=== PATIENT | male | born 1990 | race Caucasian/White ===

== ENCOUNTER → 2023-02-13 23:33 | Outpatient (CLI) | payer SELFPAY ==
[2023-02-13 18:24] LABS: Adenovirus,PCR Not Detected (NotDetected); Bordetella Pertussis Not Detected (NotDetected); Chlamydophila Pneumoniae, PCR Not Detected (NotDetected); Coronavirus 19, PCR Not Detected (NotDetected); Coronavirus 229E Not Detected (NotDetected); Coronavirus NL63 Not Detected (NotDetected); Coronavirus OC43 Not Detected (NotDetected); Coronovirus HKU1,PCR Not Detected (NotDetected); Human Metapneumovirus Not Detected (NotDetected); Influenza A, PCR Not Detected (NotDetected); Influenza AH1, 2009 Not Detected (NotDetected); Influenza AH1, PCR Not Detected (NotDetected); Influenza AH3,PCR Not Detected (NotDetected); Influenza B, PCR Not Detected (NotDetected); Mycoplasma Pneumoniae, PCR Not Detected (NotDetected); Parainfluenza 1, PCR Not Detected (NotDetected); Parainfluenza 2, PCR Not Detected (NotDetected); Parainfluenza 3, PCR Not Detected (NotDetected); Parainfluenza 4, PCR Not Detected (NotDetected); Respiratory Syncytial Virus Not Detected (NotDetected); Rhinovirus/Enterovirus Not Detected (NotDetected)
[2023-02-13 19:08] LABS: Basophils # 0.1 K/mm3 (0-0.2); Basophils % 0.9 % (0.1-2.0); Eosinophils # 0.2 K/mm3 (0.0-0.4); Eosinophils % 1.4 % (0.1-12.0); Hematocrit 49.8 % (42.0-52.0); Hemoglobin 16.4 g/dL (14.1-18.0); Lymphocytes # 3.1 K/mm3 (0.7-4.5); Lymphocytes % 22.5 % (10-50); Mean Corpuscular HGB Conc 32.9 g/dL (31.8-35.4); Mean Corpuscular Hemoglobin 27.6 pg (27.0-31.2); Mean Corpuscular Volume 83.9 fl (80-94); Monocytes # 0.6 K/mm3 (0.1-1.0); Neutrophils # 9.7 K/mm3 (1.8-7.8); Neutrophils % 71.1 % (37.0-80.0); Platelet Count 358 K/mm3 (142-424); Red Blood Count 5.94 M/mm3 (4.60-6.20); Red Cell Distribution Width 13.6 % (11.5-17.5); White Blood Count 13.6 K/mm3 (4.8-10.8)
== END ==
LOC: LAB.DROPOF 23:34
PROVIDERS: PCP Nurse Practitioner; Visit Provider Nurse Practitioner
DX: J06.9 Acute upper respiratory infection, unspecified (principal); R11.2 Nausea with vomiting, unspecified
CPT/HCPCS: 85025; 87581; 87632; 87798; C9803; U0003; U0005

== ENCOUNTER 2023-07-10 07:52 | Emergency (ER) | payer OTHER, SELFPAY ==
[2023-07-10 07:53] VITALS: BP 166/98; PULSE 84; RESP 18; TEMP 36.7; O2SAT 97; BMI 41.7
--- NOTE | 2023-07-10 07:58 | PC.NURSE ---
DR BONE AT BEDSIDE
[2023-07-10 08:01] VITALS: BP 164/83; PULSE 87; O2SAT 98
--- NOTE | 2023-07-10 08:02 | XR_ITS ---
FINAL REPORT CLINICAL HISTORY: fall, left ankle injury COMPARISON: none FINDINGS: LEFT ANKLE: Three views of the left ankle were obtained. There is no acute fracture or dislocation. The joint spaces and mortise are intact. Calcaneal spurs are noted. There is no soft tissue abnormality. IMPRESSION: No acute bony abnormality. Reviewed, Interpreted and Dictated by Frederic Lugo III, MD Transcribed by Cira Love Authenticated and [facility]
--- NOTE | 2023-07-10 08:02 | XR_ITS ---
FINAL REPORT CLINICAL HISTORY: fall, left foot COMPARISON: none FINDINGS: LEFT FOOT: Three views of the left foot were obtained. There is no acute fracture or dislocation. Mild degenerative change, worst at the first MTP. Calcaneal spurs are noted. There is no soft tissue abnormality. IMPRESSION: No acute bony abnormality. Reviewed, Interpreted and Dictated by Frederic Lugo III, MD Transcribed by Cira Love Authenticated and [facility]
--- NOTE | 2023-07-10 08:02 | XR_ITS ---
FINAL REPORT CLINICAL HISTORY: fall, left lower leg pain COMPARISON: None FINDINGS: 2 views of the left tibia/fibula were obtained. There is no acute fracture or dislocation. Mild degenerative change of the knee. There is no soft tissue abnormality. IMPRESSION: No acute fracture Reviewed, Interpreted and Dictated by Frederic Lugo III, MD Transcribed by Cira Love Authenticated and [facility]
--- NOTE | 2023-07-10 08:11 | HMH.EDGENADL ---
Discharge Plan Disposition Patient Disposition: Home, Self-Care Prescriptions Prescriptions: No Action lisinopril 40 mg tablet 40 mg PO DAILY Qty: 90 3RF celecoxib 200 mg capsule 200 mg PO DAILY Qty: 30 2RF cyclobenzaprine 10 mg tablet 10 mg PO TID PRN (Reason: sciatica) Qty: 30 0RF methylprednisolone [Medrol (Wilber)] 4 mg tablets,dose pack See Rx Instructions PO PER PKG DIR Qty: 21 0RF Rx Instructions: PO PER PKG DIR hydrochlorothiazide 12.5 mg tablet 12.5 mg PO DAILY Qty: 90 1RF Referrals Follow up/Referrals: Jai Umana DO [Staff Physician] - See instructions (1-2 weeks if you are not improving ) Provider,Referral, [Primary Care Provider] - See instructions Activity Restrictions/Add. Instructions Additional Instructions/Restrictions: You may take Tylenol or ibuprofen as needed for your symptoms. You may bear weight as tolerated. You may follow-up with orthopedic surgery in 1 to 2 weeks if you do not have a trajectory of improvement. Clinical Impressions Clinical Impression: Muscle strain of left lower leg, Left ankle sprain, Sprain of foot, left Discharge ED Provider: Mitul Hooks General Adult HPI General Chief complaint: Extremity Injury, Lower Stated complaint: WC 07/10, left ankle pain Time Seen by Provider: 07/10/23 07:57 Mode of Arrival: Wheelchair Source of Information: Patient Limitations: No Limitations Description of Symptoms (Recalled from ER Triage Doc. by RN): PT AT WORK, STEPPED OFF THE BACK OF [employer] TRUCK AND TWISTED LEFT ANKLE, FELT A POP ABOUT 0530. History of Present Illness HPI narrative: Patient is a 32-year-old male who works for [employer] was on the back of a truck today and stepped down several feet onto the side of a concrete block twisting his foot sustaining an injury to his left lower extremity at the distal tib-fib ankle and foot region. He had difficulty walking since that time this happened around 530 this morning he took Tylenol and ibuprofen and came here because the pain is not getting better. Denies injuries elsewhere. No other medical problems. Related Data Previous Rx's Medication Instructions Recorded lisinopril 40 mg tablet 40 mg PO DAILY #90 tabs 01/09/23 celecoxib 200 mg capsule 200 mg PO DAILY #30 caps 05/07/23 cyclobenzaprine 10 mg tablet 10 mg PO TID PRN sciatica #30 tabs 05/07/23 hydrochlorothiazide 12.5 mg tablet 12.5 mg PO DAILY #90 tabs 05/07/23 methylprednisolone 4 mg tablets in See Rx Instructions PO PER PKG DIR 05/07/23 a dose pack (Medrol (Wilber)) #21 tabs Allergies Allergy/AdvReac Type Severity Reaction Status Date / Time No Known Allergies Allergy Verified 05/10/23 14:49 [facility] Disclaimer: The information contained in this section may have been updated after the patient was seen, as this information can be updated by other users. Medical History Sciatica of left side Tonsillectomy planned Family History Father Coronary artery disease Hypertension Social History Smoking Status: Former smoker alcohol intake: never substance use type: denies use current occupational status: employed Travel in the last 8 weeks: None household members: spouse housing: house lives independently: Yes marital status: single ROS Obtained: Yes All systems reviewed & no additional complaints except as documented Physical Exam General General appearance: alert Respiratory Respiratory exam: Present normal lung sounds bilaterally Cardiovascular Cardiovascular exam: Present regular rate; Absent tachycardia Extremities Exam Extremities exam: Present other (Tenderness to palpation distal tib-fib compression dorsal aspect of the ankle and midfoot no significant soft tissue abnormalities or deformities) Neurological Exam Neurological exam: Pres
[2023-07-10 08:31] VITALS: BP 133/86; PULSE 76; O2SAT 97
[2023-07-10 09:12] VITALS: BP 148/85; PULSE 78; RESP 19; TEMP 36.8; O2SAT 98
== END 2023-07-10 09:15 | disposition home or self-care (01) ==
PROVIDERS: Emergency Provider Student in an Organized Health Care Education/Training Program
DX: S86.912A Strain of unspecified muscle(s) and tendon(s) at lower leg level, left leg, initial encounter (principal); S93.402A Sprain of unspecified ligament of left ankle, initial encounter; S93.602A Unspecified sprain of left foot, initial encounter; Y99.0 Civilian activity done for income or pay; X50.1XXA Overexertion from prolonged static or awkward postures, initial encounter; Z87.891 Personal history of nicotine dependence
CPT/HCPCS: 73590; 73610; 73630; 99284

== ENCOUNTER 2024-05-15 09:05 | Outpatient (CLI) | payer OTHER, SELFPAY ==
--- NOTE | 2024-05-15 09:06 | CA_ITS ---
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, Reurn to work, Lyme carditis 2 week follow up, ex-smoker Echo Enhancing Agent Comments: Technically difficult exam due to patient factors 2D Dimensions IVSd 1.03 cm M: 0.6-1.2 LVEF (Visual) 56.30 % PWd 1.05 cm M: 0.6 - 1.2 LA Volume 64.10 mL LVDd 5.69 cm M: 4.2 - 5.9 LA Volume Index [id number] mL/m2 (M/F) 16-34 LVDs 3.99 cm M: 2.5 - 4.0 EF AP4 61.90 % Left Atrium 3.10 cm M: 3.0 - 4.0 GL Strain -28.8 % M-Mode Dimensions RVDd 1.61 cm (0.9-2.6) LA Diam 3.55 cm (1.9-4.0) LVDd 6.17 cm (3.5-5.7) LVDs 3.19 cm (3.5-5.7) IVSd 0.93 cm (0.6-1.1) PWd 0.89 cm (0.6-1.1) EF (Teich) 78.80% EPSs 1.09 cm FS 48.30% EDV (Teich) 191.90 mL TAPSE 1.80 (<1.7) ESV (Teich) 40.60 mL LV Diastology E Decel Time 253 (160-240 msec) E/A Ratio 1.31 MED A' 12.80 cm/s LAT A' 10.40 cm/s Aortic Valve JUANA Index 0.94 cm2/m2 AoV Peak Rodger. 127.0 (50-130 cm/s) AO Peak GR. 6.40 mmHg AO Mean GR. 3.20 (<5 mmHg) AO VTI 23.3 (18-25 cm) JUANA (VTI) 2.62 (2.5-4.5 cm2) Mitral Valve MV A Velocity 49.0 (40-130 cm/s) E/A Ratio 1.31 Pulmonary Valve PV Peak Velocity 91.0 (50-150 cm/s) Left Ventricle The left ventricle is normal size. The left ventricular systolic function is normal. The left ventricular ejection fraction is within the normal range. There is normal left ventricular wall thickness. There is normal LV segmental wall motion. The left ventricular diastolic function is normal. LVEF is 60%. Right Ventricle The right ventricle is normal size. The right ventricular systolic function is normal. Atria The left atrium size is normal. The right atrium size is normal. There is no Doppler evidence of interatrial shunt. Aortic Valve The aortic valve opens well. There is no aortic valvular stenosis. No aortic regurgitation is present. Mitral Valve The mitral valve is normal in structure. No evidence of mitral valve stenosis. Trace mitral regurgitation. Tricuspid Valve The tricuspid valve leaflets are thin and pliable. Trace tricuspid regurgitation. There is insufficient TR jet to estimate RVSP. Pulmonic Valve The pulmonary valve is normal in structure. Trace pulmonic regurgitation. Great Vessels The aortic root is normal in size. The ascending aorta is not well-visualized. IVC is normal in size and collapses >50% with inspiration. Pericardium There is no pericardial effusion. Other Information Study Quality: Adequate Conclusion Normal biventricular systolic function. No significant valvular stenosis or regurgitation. Electronically signed by : Maki Moore MD 05/19/2024 11:34:18
== END 2024-05-15 23:59 | disposition home or self-care (01) ==
LOC: RT 09:06
PROVIDERS: PCP Nurse Practitioner; Visit Provider Nurse Practitioner
DX: A69.29 Other conditions associated with Lyme disease (principal); A69.20 Lyme disease, unspecified; I45.9 Conduction disorder, unspecified; R06.02 Shortness of breath
CPT/HCPCS: 93306

== ENCOUNTER 2025-01-11 12:25 | Outpatient (CLI) | payer OTHER, SELFPAY ==
[2025-01-11 18:46] LABS: Basophils # 0.1 K/mm3 (0-0.2); Basophils % 0.8 % (0.1-2.0); Eosinophils # 0.2 K/mm3 (0.0-0.4); Eosinophils % 2.2 % (0.1-12.0); Hematocrit 48.9 % (42.0-52.0); Hemoglobin 16.2 g/dL (14.1-18.0); Lymphocytes # 2.8 K/mm3 (0.7-4.5); Lymphocytes % 26.1 % (10-50); Mean Corpuscular HGB Conc 33.1 g/dL (31.8-35.4); Mean Corpuscular Hemoglobin 27.6 pg (27.0-31.2); Mean Corpuscular Volume 83.3 fl (80-94); Mean Platelet Volume 10.3 fl (7.4-10.4); Monocytes # 0.6 K/mm3 (0.1-1.0); Monocytes % 5.4 % (1.7-9.3); Neutrophils # 6.9 K/mm3 (1.8-7.8); Platelet Count 273 K/mm3 (142-424); Red Blood Count 5.87 M/mm3 (4.60-6.20); Red Cell Distribution Width 13.3 % (11.5-17.5); White Blood Count 10.6 K/mm3 (4.8-10.8)
[2025-01-11 19:40] LABS: Microalbumin/Creatinine Ratio 36.6
[2025-01-11 19:42] LABS: Creatinine,Urine Random 57 mg/dL (Not Estab.)
[2025-01-11 19:50] LABS: Alanine Aminotransferase 41 U/L (12-78); Albumin Level 4.6 g/dl (3.5-5.0); Alkaline Phosphatase 99 U/L (38-126); Anion Gap 15.3 mEq/L (5-15); Aspartate Amino Transferase 33 U/L (17-59); Bilirubin,Total 0.4 mg/dl (0.2-1.3); Blood Urea Nitrogen 13 mg/dl (9-20); Calcium 9.6 mg/dl (8.4-10.2); Carbon Dioxide 24 mmol/L (22.0-30.0); Chloride 104 mmol/L (98-107); Chol/HDL Ratio 3.9 (1-3.5); Cholesterol 196 mg/dl (140-200); Estimated Glomerular Filt Rate 111 ml/min (>60); GFR (African American) 135 ML/MIN (>60); Globulin 2.3 g/dL (1.3-3.2); Glucose 81 mg/dl (74-100); HDL Cholesterol 50 mg/dl (40-60); Potassium 4.3 mmoL/L (3.5-5.1); Sodium 139 mmol/L (136-145); Total Protein,Serum 6.9 g/dl (6.3-8.2); Triglycerides 133 mg/dl (30-150); VLDL Cholesterol 27 mg/dL (0-40)
[2025-01-11 20:10] LABS: Direct LDL Cholesterol 113.09 mg/dL (100-129)
[2025-01-11 20:21] LABS: Thyroid Stimulating Hormone 2.51 uIU/mL (0.465-4.68)
[2025-01-11 20:27] LABS: Hemoglobin A1C 5.1 % (4.0-6.0)
== END 2025-01-11 23:59 | disposition home or self-care (01) ==
LOC: LAB.DROPOF 01-12 08:50
PROVIDERS: PCP Nurse Practitioner; Visit Provider Nurse Practitioner
DX: I10 Essential (primary) hypertension (principal); Z13.1 Encounter for screening for diabetes mellitus; Z13.220 Encounter for screening for lipoid disorders; Z68.42 Body mass index [BMI] 45.0-49.9, adult
CPT/HCPCS: 80053; 80061; 82043; 82570; 83036; 84443; 85025

== ENCOUNTER 2025-03-09 06:14 | Outpatient (CLI) | payer OTHER, SELFPAY | END 2025-03-09 23:59 | disposition home or self-care (01) | LOC: RT 06:15 | PROVIDERS: Visit Provider Nurse Practitioner | DX: G47.33 Obstructive sleep apnea (adult) (pediatric) (principal); I10 Essential (primary) hypertension; Z68.42 Body mass index [BMI] 45.0-49.9, adult | CPT/HCPCS: G0399 ==